=== PATIENT | male | born 1975 ===

== ENCOUNTER 2016-10-09 07:43 | Day surgery (SDC) | payer BC ==
[2016-10-09] VITALS (8 sets, daily range): BP systolic 115–134; BP diastolic 75–93
[~2016-10-09] VITALS: Ht 180.3 cm; Wt 88.5 kg
[~2016-10-09 07:43] MED LIST: LR 1000ml 1,000 ML IVLG SCH
[2016-10-09] MEDS ORDERED: LANTUS SOL100 UNIT/1 SUBQ (08:20)
[2016-10-09] MEDS ORDERED: METFORMIN HCL1000 M3 PO (08:23)
[2016-10-09] MEDS ORDERED: Propofol 10mg/ml 20ml IV ONE (09:00)
[2016-10-09] MEDS ORDERED: LR 1000ml ONE (09:00)
[2016-10-09] MEDS ORDERED: Lidocaine 1% MPF 10mg/ml 5ml ONE (09:00)
--- NOTE | 2016-10-09 09:01 | Pre-Procedure Note/Attestation ---
Pre-Procedure Note/Attestation Complete Prior to Procedure Planned Procedure: not applicable Procedure Narrative: EGD/Colon Indications for Procedure Pre-Operative Diagnosis: UC, diarrhea, r/o CD Attestation I attest that I discussed the nature of the procedure; its benefits; risks and complications; and alternatives (and the risks and benefits of such alternatives ), prior to the procedure, with the patient (or the patient's legal artist representative). I attest that, if there was a reasonable possibility of needing a blood transfusion, the patient (or the patient's legal artist representative) was given the [facility] standardized written summary, pursuant to the Devan Genia Blood Safety Act ([place] Health and Safety Code # 1645, as amended). I attest that I re-evaluated the patient just prior to the surgery and that there has been no change in the patient's H&P, except as documented below: JER ROLON Oct 09, 2016 09:01
--- NOTE | 2016-10-09 09:02 | Short Stay Surgery H&P ---
History of Present Illness History of Present Illness Chief Complaint See typed H&P HPI Taco Vallejo is a 40 year old male who was admitted on for Hematochezia Patient History Allergies: Coded Allergies: MESALAMINE (Verified Allergy, Severe, pancreatitis, 10/09/16) PAST MEDICAL HISTORY: Past Surgeries: Social History: Medication History Scheduled Insulin Glargine (Lantus), 32 SUBQ BEDTIME, (Reported) Metformin HCl (Metformin HCl ER), 1,000 MG PO BID, (Reported) Physical Exam Vital Signs Last Vital Signs Date Time Temp Pulse Resp B/P Pulse Ox O2 Delivery O2 Flow Rate FiO2 10/09/16 08:12 97.8 77 20 116/81 98 Room Air Plan Attestation Are the patient's medical conditions optimized for surgery? JER ROLON Oct 09, 2016 09:02
--- NOTE | 2016-10-09 09:59 | Endoscopy Procedure Note ---
Endoscopy Procedure Note Indication for Procedure: BRB, diarrhea Procedures Performed: EGD, colonoscopy Operative Findings/Diagnosis: duod apth, radha, tics, colitis, lichenified anal skin Specimen: yes Pt Tolerated Procedure Well: Yes Estimated Blood Loss: none Anesthesiologist: see report Anesthesia: MAC Medication Given: see anesthesia record Implant(s) used?: No 50 yrs or older w/o bx or poly: Not Applicable 10yrs. F/U not recommended: Not Applicable If not recommended, why?: JER ROLON Oct 09, 2016 09:59
--- NOTE | 2016-10-09 10:00 | Brief Operative Note ---
Immediate Post Operative Note Operative Note Chief Complaint: BRB diarrhea Pre-op Diagnosis: UC, diarrhea, r/o CD Procedure: esophagogastroduodenoscopybx Colon , bx, Post-op Diagnosis: duod apth, radha, tics, colitis, lichenified anal skin Surgeon: lindsay Anesthesiologist: see report Anesthesia: MAC Specimen: yes Complications: none Condition: stable Estimated Blood Loss: none Drains: none Implant(s) used?: No JER ROLON Oct 09, 2016 10:00
--- NOTE | 2016-10-09 10:09 | Immediate Post-Op Evaluation ---
Immediate Post-Op Evalulation Immediate Post-Op Evalulation Procedure: egd/colonoscopy Date of Evaluation: Oct 09, 2016 Time of Evaluation: 10:08 IV Fluids: 600 Blood Pressure Systolic: 132 Blood Pressure Diastolic: 95 Pulse Rate: 72 Respiratory Rate: 14 O2 Sat by Pulse Oximetry: 100 Temperature (Fahrenheit): 98.7 Nausea: No Vomiting: No Complications none Patient Status: awake, reacts, patent Hydration Status: adequate Drug: none LILLIAM MORA CRNA Oct 09, 2016 10:08
--- NOTE | 2016-10-09 10:10 | Anethesia Preoperative Eval ---
Anesthesia Pre-op PMH/ROS General Date of Evaluation: Oct 09, 2016 Time of Evaluation: 09:00 Anesthesiologist: sylvie ASA Score: ASA 2 Mallampati Score Class I : Soft palate, uvula, fauces, pillars visible Class II: Soft palate, uvula, fauces visible Class III: Soft palate, base of uvula visible Class IV: Only hard plate visible Mallampati Classification: Class II Surgeon: sylvie Diagnosis: hematochezia Surgical Procedure: EGD/Colonoscopy Anesthesia History: none Social History: smoking, current smoker Family History: no anesthesia problems Allergies: Coded Allergies: MESALAMINE (Verified Allergy, Severe, pancreatitis, 10/09/16) Medications: see eMAR Past Medical History Cardiovascular: Denies: CAD, HTN, [place], arrhythmia, other, valve dz Pulmonary: Denies: COPD, CHASE, asthma, other Gastrointestinal/Genitourinary: Reports: GERD Neurologic/Psychiatric: Denies: CVA, TIA, dementia, depression/anxiety, other Endocrine: Reports: DM HEENT: Denies: [place] (L), [place] (R), cataract (L), cataract (R), glaucoma, other Hematology/Immune: Denies: DVT, anemia, bleeding disorder, other Musculoskeletal/Integumentary: Denies: DDD, DJD, OA, RA, edema, other PSxH Narrative: EGD/Colonoscopy Anesthesia Pre-op Phys. Exam Physician Exam Last Vital Signs Date Time Temp Pulse Resp B/P Pulse Ox O2 Delivery O2 Flow Rate FiO2 10/09/16 08:12 97.8 77 20 116/81 98 Room Air Constitutional: NAD Neurologic: CN 2-12 intact Cardiovascular: RRR Respiratory: CTA Gastrointestinal: S/NT/ND Airway Exam Mallampati Classification 2 Mallampati Score: Class II MO: full ROM: full Dentures: no lower, no upper Anesthesia Pre-op A/P Studies Pre-op Studies: EKG - SR Risk Assessment & Plan Plan: mac Status Change Before Surgery: No Pre-Antibiotics Drug: none LILLIAM MORA CRNA Oct 09, 2016 10:10
--- NOTE | 2016-10-09 10:15 | 48 Hour Post Anesthesia Eval ---
Post Anesthesia Evaluation Procedure: egd/colonoscopy Date of Evaluation: Oct 09, 2016 Time of Evaluation: 10:15 Blood Pressure Systolic: 132 0: 80 Pulse Rate: 66 Respiratory Rate: 14 O2 Sat by Pulse Oximetry: 100 Airway: patent Nausea: No Vomiting: No Hydration Status: adequate Cardiopulmonary Status: stable Mental Status/LOC: patient returned to baseline Post-Anesthesia Complications: none Follow-up care needed: N/A LILLIAM MORA CRNA Oct 09, 2016 10:15
--- NOTE | 2016-10-09 22:30 | Operative Note - Dictated ---
DATE OF OPERATION: 10/09/2016 GASTROENTEROLOGY PROCEDURE REPORT PROCEDURE: Upper gastroendoscopy with biopsy as well as colonoscopy with biopsy. SURGEON: Augustine Velarde M.D. ANESTHESIA: Please see the separate anesthesiologist notes for details. PRE-ENDOSCOPIC DIAGNOSES: 1. Hematochezia. 2. History of ulcerative colitis. POST-ENDOSCOPIC DIAGNOSES: 1. Single aphthous ulceration in the first portion of duodenum, status post biopsy. 2. Mild gastritis, status post biopsy. 3. Scattered rare diverticulosis. 4. Normal terminal ileum with no evidence of ileal disease. 5. Minimal loss of mucosal vascularity throughout the colon with a few patches of erosions seen throughout the colon. Status post random biopsies of the right and left colon. 6. Lichenified external anal lesion. DESCRIPTION OF PROCEDURE: The procedure, its risks, indications, alternatives, and possible complications including, but not limited to, bleeding, infection, perforation, , and anesthesia complications were explained to the patient and informed consent was obtained. The patient was then sedated in the left lateral decubitus position. A diagnostic upper endoscope was introduced through the oropharynx and advanced to the duodenum. The endoscope was removed and then the colonoscope was introduced into the rectum and advanced to the terminal ileum. The colonoscope was then gradually removed. The examination findings of the upper gastrointestinal and the lower gastrointestinal tract are listed above. Specifically, a single aphthous ulceration in the duodenum was identified and it was biopsied. The colon had very minimal visual evidence of colitis with a few patches of erosion seen and the mucosal vascularity was perhaps minimally infected. The colonoscope was removed. The patient was sent to recovery in good condition. COMPLICATIONS: None. ASSESSMENT: This examination is notable for single aphthous ulceration in the duodenum of unclear significance. Biopsies will be evaluated to see if there is any Crohn's like features of this finding under microscopy. Biopsies taken throughout the colon will also be evaluated for evaluation of her colitis. The patient will be seen in follow up and will be counseled accordingly. RECOMMENDATIONS: 1. Follow up biopsy results. 2. Outpatient followup. Augustine Velarde M.D. DR: PEE JOB#: [id number] CC: Augustine Velarde M.D.; Fax#: [phone]
== END 2016-10-09 11:30 | disposition home or self-care (01) ==
LOC: GAS 07:43
DX: K26.9 Duodenal ulcer, unspecified as acute or chronic, without hemorrhage or perforation (principal); K29.80 Duodenitis without bleeding; K29.50 Unspecified chronic gastritis without bleeding; K57.30 Diverticulosis of large intestine without perforation or abscess without bleeding; L28.0 Lichen simplex chronicus; K52.9 Noninfective gastroenteritis and colitis, unspecified; K21.9 Gastro-esophageal reflux disease without esophagitis; E78.00 Pure hypercholesterolemia, unspecified; F17.210 Nicotine dependence, cigarettes, uncomplicated; E11.9 Type 2 diabetes mellitus without complications; Z79.4 Long term (current) use of insulin; Z79.84 Long term (current) use of oral hypoglycemic drugs; Z88.8 Allergy status to other drugs, medicaments and biological substances
CPT/HCPCS: 43239; 45380; 82962; J2704; J7120; 94003; 94150